=== PATIENT | female | born 1990 | race Caucasian/White ===

== ENCOUNTER 2018-06-01 11:29 | Inpatient (IN) ==
[2018-06-03 08:29] VITALS: BP 148/90
== END 2018-06-03 12:30 | disposition home or self-care (01) | DRG 560 ==
LOC: N.LDOUT 11:29 → N.LD 11:33 → N.OB 21:39
PROVIDERS: ADMIT Obstetrics & Gynecology; ATTEND Obstetrics & Gynecology